=== PATIENT | male | born 1955 | race Caucasian/White ===

== ENCOUNTER 2020-07-17 16:24 | Emergency (ER) | payer OTHER ==
[~2020-07-17] VITALS: Ht 188 cm; Wt 81.6 kg
[2020-07-17 16:31] VITALS: Ht 188 cm; Wt 81.6 kg
[2020-07-17 17:56] LABS: BASOPHIL % 0.2 % (0-2); PLATELET COUNT 238 x10^3mcL (130-400)
[2020-07-17 17:59] LABS: CALCIUM 9.3 mg/dL (8.5-10.1); CARBON DIOXIDE 24.1 mmol/L (21-32); CREATININE SERUM 1.3 mg/dL (0.7-1.3); POTASSIUM SERUM 4.6 mmol/L (3.5-5.1)
[2020-07-17 18:02] LABS: RED CELL DISTRIBUTION WIDTH 17.6 % (11.5-14.5)
[2020-07-17 18:04] LABS: BILIRUBIN TOTAL 0.8 mg/dL (0.20-1.00); TOTAL PROTEIN, SERUM 7.7 g/dL (6.4-8.2)
[2020-07-17 18:06] LABS: ALBUMIN 2.8 g/dL (3.4-5.0)
[2020-07-18 01:30] VITALS: BP 105/68
== END 2020-07-18 01:32 | disposition short-term general hospital (02) ==
LOC: ED 16:24
PROVIDERS: Emergency Medicine
DX: I81 Portal vein thrombosis (principal); I10 Essential (primary) hypertension
CPT/HCPCS: J2270; J2405; Q9967

== ENCOUNTER 2020-08-25 08:28 | Inpatient (IN) | payer OTHER ==
[~2020-08-25] VITALS: Ht 170.2 cm; Wt 74.0 kg
[2020-08-25 09:21] LABS: CALCIUM 8.5 mg/dL (8.5-10.1); CHLORIDE SERUM 95 mmol/L (98-107); CREATININE SERUM 1.1 mg/dL (0.7-1.3); GFR1 > 60 mL/min; GLUCOSE SERUM 78 mg/dL (74-106); POTASSIUM SERUM 4.5 mmol/L (3.5-5.1); SODIUM SERUM 130 mmol/L (136-145)
[2020-08-25 09:34] LABS: ALKALINE PHOSPHATASE 806 U/L (46-116); ALT/SGPT 55 U/L (16-63); AST/SGOT 163 U/L (15-37); BILIRUBIN TOTAL 5.81 mg/dL (0.20-1.00); LIPASE 257 IU/L (73-393); T4(THYROXINE) 5.5 ug/dL (4.7-13.3); TOTAL PROTEIN, SERUM 7.2 g/dL (6.4-8.2)
[2020-08-25 09:36] LABS: ALBUMIN 2.5 g/dL (3.4-5.0); CHOLESTEROL 221 mg/dL (<200); HDL CHOLESTEROL 11 mg/dL (40-60)
[2020-08-25 10:29] LABS: PLATELET COUNT 181 x10^3mcL (130-400)
[2020-08-25 11:25] LABS: rbc morphology (normal/abnorm) ABNORMAL (NORMAL)
[2020-08-25 11:54] LABS: UA SPECIFIC GRAVITY 1.025 (1.005-1.035); microscopic required? YES; urine erythrocyte NEGATIVE (NEGATIVE)
[2020-08-25 12:06] LABS: AMPHETAMINE QUAL UR NONE DETECTED (See below)
[2020-08-25 15:26] VITALS: BP 149/94
[2020-08-25 15:50] VITALS: Ht 170.2 cm; Wt 74.0 kg
[2020-08-25 21:09] VITALS: BP 139/87
[2020-08-26 05:42] VITALS: BP 138/84
[2020-08-26 07:10] LABS: CALCIUM 8.6 mg/dL (8.5-10.1); CARBON DIOXIDE 24.9 mmol/L (21-32); CHLORIDE SERUM 96 mmol/L (98-107); GFR1 > 60 mL/min; GLUCOSE SERUM 68 mg/dL (74-106); MAGNESIUM 2.1 mg/dL (1.8-2.4); POTASSIUM SERUM 5.3 mmol/L (3.5-5.1); SODIUM SERUM 133 mmol/L (136-145)
[2020-08-26 07:35] LABS: PLATELET COUNT 101 x10^3mcL (130-400); RED CELL DISTRIBUTION WIDTH 25.2 % (11.5-14.5)
[2020-08-26 08:12] VITALS: BP 133/74
[2020-08-26 11:01] LABS: BAND NEUTROPHIL 1 % (0-10); MONOCYTE 5 % (0-7); SEGMENTED NEUTROPHILS 74 % (37-75)
[2020-08-26 11:02] LABS: PLATELET MORPHOLOGY PLATELETS DECREASED; rbc morphology (normal/abnorm) ABNORMAL (NORMAL)
[2020-08-26 12:19] VITALS: BP 134/86
[2020-08-26 15:45] VITALS: BP 137/81
[2020-08-26 20:00] VITALS: BP 133/82
[2020-08-27 05:30] VITALS: BP 123/71
[2020-08-27 06:35] LABS: CALCIUM 8.5 mg/dL (8.5-10.1); CARBON DIOXIDE 27.7 mmol/L (21-32); CHLORIDE SERUM 96 mmol/L (98-107); CREATININE SERUM 1.1 mg/dL (0.7-1.3); GFR1 > 60 mL/min; GLUCOSE SERUM 78 mg/dL (74-106); MAGNESIUM 2.1 mg/dL (1.8-2.4); POTASSIUM SERUM 4.8 mmol/L (3.5-5.1); SODIUM SERUM 134 mmol/L (136-145)
[2020-08-27 07:34] LABS: RED CELL DISTRIBUTION WIDTH 26.4 % (11.5-14.5)
[2020-08-27 08:28] VITALS: BP 143/90
[2020-08-27 09:34] LABS: rbc morphology (normal/abnorm) ABNORMAL (NORMAL)
[2020-08-27 09:35] LABS: PLATELET COUNT 96 x10^3mcL (130-400)
[2020-08-27 09:39] LABS: BAND NEUTROPHIL 2 % (0-10); MONOCYTE 7 % (0-7); SEGMENTED NEUTROPHILS 75 % (37-75)
[2020-08-27 12:25] VITALS: BP 134/86
[2020-08-27 16:30] VITALS: BP 144/87
[2020-08-27 20:48] VITALS: BP 137/89
[2020-08-28 05:07] VITALS: BP 122/81
[2020-08-28 06:59] LABS: CALCIUM 8.5 mg/dL (8.5-10.1); CHLORIDE SERUM 98 mmol/L (98-107); CREATININE SERUM 0.9 mg/dL (0.7-1.3); GFR1 > 60 mL/min; GLUCOSE SERUM 115 mg/dL (74-106); MAGNESIUM 2.1 mg/dL (1.8-2.4); POTASSIUM SERUM 4.9 mmol/L (3.5-5.1); SODIUM SERUM 134 mmol/L (136-145)
[2020-08-28 07:31] LABS: PLATELET COUNT 89 x10^3mcL (130-400)
[2020-08-28 08:30] VITALS: BP 141/92
[2020-08-28 11:15] LABS: BASOPHIL % 0 % (0-2)
[2020-08-28 12:29] VITALS: BP 123/92
[2020-08-28 17:00] VITALS: BP 141/90
[2020-08-28 17:35] VITALS: BP 123/92
== END 2020-08-28 18:56 | disposition home health service (06) | DRG 436 ==
LOC: ED 08:28 → DU 13:32 → MU 13:32 → DU 14:58 → MU 14:59
PROVIDERS: Emergency Medicine; ADMIT Hospitalist; ATTEND Hospitalist
PROC: 02HV33Z Insertion of Infusion Device into Superior Vena Cava, Percutaneous Approach (ICD-10-PCS; principal; 2020-08-28)
DX: C78.7 Secondary malignant neoplasm of liver and intrahepatic bile duct (principal); J90 Pleural effusion, not elsewhere classified; R18.8 Other ascites; E87.1 Hypo-osmolality and hyponatremia; E87.3 Alkalosis; E46 Unspecified protein-calorie malnutrition; I10 Essential (primary) hypertension; Z20.828 Contact with and (suspected) exposure to other viral communicable diseases; Z79.899 Other long term (current) drug therapy
CPT/HCPCS: 36600; 82962; 83880; 97116-GP; 97530-GP; G0378; G0480; J1170; J2405; J3010; J7030; J7131; P9047; Q0092